=== PATIENT | male | born 1990 | race Caucasian/White ===

== ENCOUNTER → 2017-11-03 | Outpatient (CLI) | payer OTHER ==
--- NOTE | 2017-11-03 15:24 | DIAGNOSTIC IMAGING REPORT ---
MRI OF LEFT ANKLE WITHOUT IV CONTRAST CLINICAL HISTORY: Medial and lateral ankle pain. Injury several years ago. Clinical concern for osteochondral defect. COMPARISON STUDY: No priors. TECHNIQUE: MRI of the left ankle is performed utilizing various T1 and T2-weighted sequences in the axial, sagittal, and coronal planes. IV contrast was not administered for this examination. Several sequences are modestly degraded by motion artifact. Note that interpretation is suboptimal without plain film correlate. FINDINGS: Normal marrow signal intensity is preserved throughout the visualized bony structures. There is no MRI evidence of fracture. There is no osteochondral defect seen in the talar dome. No joint effusion is identified. There is maintenance of normal fat within the sinus tarsi. The Achilles tendon is normal in morphology and signal intensity. The anterior, posterior, and peroneal tendons are preserved. The anterior tibiofibular ligament is maintained. There is irregularity of the anterior talofibular ligament, likely representing remote injury. The deltoid and spring ligaments are intact as imaged. The visualized portions of the plantar fascia are normal in appearance. No soft tissue abnormality is seen deep to the cutaneous markers. IMPRESSION: 1. No acute bony abnormality is seen in the left ankle. There is no osteochondral defect identified as clinically queried. 2. 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 3. The ankle tendons are intact. Dictated: 11/03/2017 3:00 PM Transcribed: 11/03/2017 3:24 PM Mel Electronically signed by: Jay Jay Ivan M.D. 11/03/2017 4:29 PM Dictated Date/Time: 11/03/2017 3:00 PM
== END | disposition home or self-care (01) ==
LOC: C.MRI 13:36
PROVIDERS: ATTEND Family Medicine
DX: M25.572 Pain in left ankle and joints of left foot (principal); S93.492A Sprain of other ligament of left ankle, initial encounter; X58.XXXA Exposure to other specified factors, initial encounter